=== PATIENT | female | born 1970 | race Caucasian/White ===

== ENCOUNTER 2017-06-14 09:51 | Day surgery (SDC) | payer OTHER ==
--- NOTE | 2017-06-14 07:52 | PCM.SN ---
- Free Text/Narrative Note: 07/13/16 [id number] Time out performed. Requested to placeright interscale block with ultrasound guidance and nerve stimulator for post op pain control per Dr. Almendarez and patient. 05/14/17 [id number] Preop diagnosis right shoulder pain. Procedure is left shoulder arthrosocpy with rotator cuff repair, decompression. Informed consent obtained. Monitors and O2 placed at 2 l per n/c. Versed 2 mg and Fentanyl 50 mcg given IV total. Patient awake and talking during procedure. Right neck and clavicle area prepped with chlorprep. Sterile gloves, hat and mask worn. US probe with sterile sleeve placed midclavicular with ID of brachial plexus and subclavian artery. Brachial plexus followed cephalad to level of cricoid. Lidocaine 1% local anesthetic injected prior to block placement. 22 g 2 inch stimplex needle advanced with US guidance to brachial plexus. Positive forearm response at ..4mA with nerve stimulator. Ceased with saline injection.Ropivacaine 0.5% with epi 1:200,000 injected in increments of 5 ml with negative aspiration before each injection to a total of 30 ml. Good spread of local anesthetic seen on US. Patient tolerated procedure well. Vitals stable with no complaints. Post vitals.-116/64 100% Sat 87 16 [email or web address]
[~2017-06-14 09:51] MED LIST: Bupivacaine 0.25% 30 ML SDV ONE; Dexamethasone 4 MG/ML SDV ONE; EPINEPHrine 1 MG/ML 30 ML MDV ONE; EPINEPHrine 1 MG/ML SDV ONE; HYDROmorphone 0.5 MG/0.5 ML Syringe IVPUSH PRN; Lactated Ringers 1,000 ML IV SCH; Lactated Ringers 1,000 ML ONE; Lidocaine 1% 4 ML ONE; Lidocaine 1%/Sod Bicarbonate in NS 8.4% 1 ML Syringe PRN; Meperidine PF 50 MG/ML Syringe IVPUSH PRN; Midazolam 1 MG/ML 2 ML SDV ONE; Ondansetron 4 MG/2 ML SDV IVPUSH PRN; Ondansetron 4 MG/2 ML SDV ONE; Propofol 200 MG/20 ML SDV ONE; Rocuronium 50 MG/5 ML Vial ONE; Ropivacaine 0.5% 5 MG/ML 30 ML SDV ONE; Sodium Chloride 0.9% 10 ML Syringe FLUSH PRN; ceFAZolin 1 GM Vial ONE; fentaNYL 100 MCG/2 ML SDV IVPUSH PRN; fentaNYL 250 MCG/5 ML SDV ONE
--- NOTE | 2017-06-14 10:17 | PCM.POSTAN ---
POST ANESTHESIA ASSESSMENT - MENTAL STATUS Mental Status: Alert, Oriented - VITAL SIGNS Pulse Rate: 79 SaO2: 96 Resp Rate: 17 Blood Pressure: 131/81 Temperature: 97.8 F - RESPIRATORY Respiratory Status: Respiratory Rate WNL, Airway Patent, O2 Saturation Stable, Supplemental Oxygen - CARDIOVASCULAR CV Status: Pulse Rate WNL, Blood Pressure Stable - GASTROINTESTINAL GI Status: No Symptoms - PAIN Pain Score: 0 - POST OP HYDRATION Hydration Status: Adequate & Stable
[2017-06-14 11:44] VITALS: BP 124/77
--- NOTE | 2017-06-14 12:12 | PCM48HPAN ---
Post Anesthesia Note - EVALUATION WITHIN 48HRS OF ANESTHETIC Vital Signs in Normal Range: Yes Patient Participated in Evaluation: Yes Respiratory Function Stable: Yes Airway Patent: Yes Cardiovascular Function Stable: Yes Hydration Status Stable: Yes Pain Control Satisfactory: Yes Nausea and Vomiting Control Satisfactory: Yes Mental Status Recovered: Yes (denies pain and nausea)
--- NOTE | 2017-06-20 09:18 | PCM.OPNOTE ---
- General Post-Op/Procedure Note Date of Surgery/Procedure: 06/14/17 Operative Procedure(s): right shoulder video arthroscopy with rotator cuff repair, subacromial decompression, and limited debridement of the subacromial space Pre Op Diagnosis: right shoulder rotator cuff tear with impingement Post-Op Diagnosis: Same Anesthesia Technique: General ET Tube, Regional Block Primary Surgeon: Bill Almendarez Anesthesia Provider: Danette Barrios Motion Picture Cameraman: Susie Chaves EBMayito in mLs: 5 Complications: None Condition: Good
--- NOTE | 2017-06-20 10:38 | OR ---
DATE OF OPERATION: 06/14/2017 SURGEON: Bill Almendarez MD OPERATION PERFORMED: Right shoulder video arthroscopy with rotator cuff repair, subacromial decompression, and limited debridement of the subacromial space. PREOPERATIVE DIAGNOSIS: Right shoulder rotator cuff tear with impingement. POSTOPERATIVE DIAGNOSIS: Right shoulder rotator cuff tear with impingement. ANESTHESIA: General endotracheal intubation with interscalene block. ANESTHESIA PROVIDER: Danette Barrios CRNA. CONTINUOUS DRIER OPERATOR: Susie Chaves PA-C. ESTIMATED BLOOD LOSS: Less than 5 mL. COMPLICATIONS: None. CONDITION: Stable. DESCRIPTION OF PROCEDURE: The patient was identified in the preop holding area. Proper site was marked and identified by the surgeon. The patient was taken back to the operating theater, where after adequate anesthesia, the patient was placed in a lazy left lateral decubitus position. A wedge was placed posteriorly. All bony prominences were well padded. The patient was secured to the table. At this time, the right upper extremity was sterilely prepped and draped in the usual sterile fashion. OR time-out was performed. The patient received 2 g of IV Ancef and 12 pounds of traction was applied to the right upper extremity. Standard posterior incision was made. The scope trocar was introduced into the glenohumeral joint. At this time, biceps tendon was found to be intact with the use of a spinal needle, anterior portal was then created. There was noted to be a large tear of the supraspinatus tendon that was full thickness. The infraspinatus and teres minor were noted to be intact. There was no chondromalacia noted of the glenoid or the humerus. There were no loose or foreign bodies noted. At this time, attention was turned to the subacromial space. A limited bursectomy and debridement was then done in the subacromial space. There was noted to be inflamed tissue. The tear was identified and with the use of a spinal needle, a lateral portal was created. At this time, the patient was found to have a type 2/3 acromion and using a 4-0 full-radius marshal, this was brought down to a smooth border that was in line with the posterior portion to make a type 1 acromion. At this time, a spinal needle was used and a punch was used for 4.75 mm Arthrex SwiveLock anchor for the medial row. Two limbs of FiberWire and 2 limbs of FiberWire placed from anterior to posterior. The 2 limbs of FiberWire were then tied medially for a medial row repair. All 4 limbs were then brought out laterally. A punch was again used out laterally and another 4.75 SwiveLock anchor was placed laterally for a double-row repair. Tension was applied to the sutures. At this time, was found to have an adequate watertight repair. The sutures were then cut. At this time, excess saline was drained from the shoulder. A 3-0 nylon simple suture was used for closure of the skin. The patient was placed in a sterile soft dressing and a pillow sling and was sent to PACU in stable condition. JUAN J /[id number]
== END 2017-06-14 12:14 | disposition home or self-care (01) ==
LOC: JD.SDS 09:51
PROVIDERS: ATTEND Orthopaedic Surgery
DX: M75.101 Unspecified rotator cuff tear or rupture of right shoulder, not specified as traumatic (principal); M75.41 Impingement syndrome of right shoulder; Z79.82 Long term (current) use of aspirin; Z79.899 Other long term (current) drug therapy; Z98.890 Other specified postprocedural states; Z98.51 Tubal ligation status
CPT/HCPCS: 29822; 29826; 29827; 87641; C1713; J0171; J0690; J1100; J2250; J2405; J2795; J3010; J3490; J7120; 01638; 64415; J2704

== ENCOUNTER 2017-11-02 09:04 | Day surgery (SDC) | payer OTHER ==
[~2017-11-02 09:04] MED LIST changes: -Bupivacaine 0.25% 30 ML SDV ONE; -Dexamethasone 4 MG/ML SDV ONE; -EPINEPHrine 1 MG/ML 30 ML MDV ONE; -EPINEPHrine 1 MG/ML SDV ONE; -HYDROmorphone 0.5 MG/0.5 ML Syringe IVPUSH PRN; -Lactated Ringers 1,000 ML ONE; -Lidocaine 1% 4 ML ONE; +Lidocaine 1% with EPINEPHrine 1:100,000 20 ML MDV ONE; +Lidocaine 1%/Sod Bicarbonate in NS 8.4% 1 ML Syringe IV PRN; -Lidocaine 1%/Sod Bicarbonate in NS 8.4% 1 ML Syringe PRN; -Meperidine PF 50 MG/ML Syringe IVPUSH PRN; -Midazolam 1 MG/ML 2 ML SDV ONE; -Ondansetron 4 MG/2 ML SDV IVPUSH PRN; -Ondansetron 4 MG/2 ML SDV ONE; -Propofol 200 MG/20 ML SDV ONE; -Rocuronium 50 MG/5 ML Vial ONE; -Ropivacaine 0.5% 5 MG/ML 30 ML SDV ONE; +Sodium Chloride 0.9% 50 ML SDV ONE; -ceFAZolin 1 GM Vial ONE; -fentaNYL 100 MCG/2 ML SDV IVPUSH PRN; -fentaNYL 250 MCG/5 ML SDV ONE
--- NOTE | 2017-11-02 09:28 | PCM.PREANE ---
Preanesthetic Assessment - Procedure Proposed Procedure: D&C, cervical conization - Anesthesia/Transfusion/Family Hx Anesthesia History: Prior Anesthesia Reaction Type of Anesthesia Reaction: Excessive Somnolence Family History of Anesthesia Reaction: No Transfusion History: No Prior Transfusion(s) Intubation History: Unknown Additional History: factor 5 leiden deficiency - Review of Systems General: No Symptoms Pulmonary: No Symptoms Cardiovascular: Other (HLD) Gastrointestinal: No Symptoms Neurological: No Symptoms Other: Reports: Thyroid Problems (hypothyroidism ), Depression - Physical Assessment NPO Status Date: 11/01/17 NPO Status Time: 21:00 Pulse: 76 O2 Sat by Pulse Oximetry: 98 Respiratory Rate: 16 Blood Pressure: 130/84 Temperature: 36.4 C Height: 1.65 m Weight: 91.626 kg ASA Class: 2 Mental Status: Alert & Oriented x3 Airway Class: Mallampati = 2 Dentition: Reports: Normal Dentition Thyro-Mental Finger Breadths: 3 Mouth Opening Finger Breadths: 3 ROM/Head Extension: Full Lungs: Clear to Auscultation, Normal Respiratory Effort Cardiovascular: Regular Rate, Regular Rhythm - Allergies Allergies/Adverse Reactions: Allergies Allergy/AdvReac Type Severity Reaction Status Date / Time No Known Allergies Allergy Verified 11/01/17 13:30 - Blood Blood Available: No Product(s) Available: None - Anesthesia Plan Pre-Op Medication Ordered: None - Acknowledgements Anesthesia Type Planned: MAC Pt an Appropriate Candidate for the Planned Anesthesia: Yes Alternatives and Risks of Anesthesia Discussed w Pt/Guardian: Yes Pt/Guardian Understands and Agrees with Anesthesia Plan: Yes PreAnesthesia Questionnaire HEENT History: Reports: Allergic Rhinitis, Impaired Vision, Sinusitis, Other ( See Below) Other HEENT History: Pharyngitis, wears glasses, tongue lesion Cardiovascular History: Reports: High Cholesterol Respiratory History: Reports: None Gastrointestinal History: Reports: None Genitourinary History: Reports: None, STD, Other (See Below) Other Genitourinary History: ASCUS< DILMA I, midline cystocele 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, Other (See Below) Other OB/BYN History: ASCUS, DILMA I, coposcopy, HPV Other Musculoskeletal History: Right shoulder pain Neurological History: Reports: None Psychiatric History: Reports: Depression Endocrine/Metabolic History: Reports: Hypothyroidism, Obesity/BMI 30+, Vitamin D Deficiency, Other (See Below) Other Endocrine/Metabolic History: Thyroid nodule, diffuse non-toxic goiter Hematologic History: Reports: Other (See Below) Other Hematologic History: Factor V, Low magnesium level Immunologic History: Reports: None Oncologic (Cancer) History: Reports: None Dermatologic History: Reports: Psoriasis, Other (See Below) Other Dermatologic History: atopic dermatitis, onchomycosis, skin lesion - Infectious Disease History Infectious Disease History: Reports: None - Past Surgical History Head Surgeries/Procedures: Reports: None HEENT Surgical History: Reports: Tonsillectomy Cardiovascular Surgical History: Reports: None Respiratory Surgical History: Reports: None GI Surgical History: Reports: None Female Surgical History: Reports: Cystoscopy, Tubal Ligation Male Surgical History: Reports: None Endocrine Surgical History: Reports: None Neurological Surgical History: Reports: None Musculoskeletal Surgical History: Reports: None, Other (See Below) Other Musculoskeletal Surgeries/Procedures:: right rotator cuff repair 05/2017 Oncologic Surgical History: Reports: None Dermatological Surgical History: Reports: None - SUBSTANCE USE Smoking Status *Q: Never Smoker Second Hand Smoke Exposure: No Recreational Drug Use History: No - HOME MEDS Home Medications: Home Meds Ascorbate Calcium [Vitamin C] 1,000 mg PO DAILY 06/13/17 [History] Aspirin 81 mg PO DAILY 06/13/17 [History] Cholecalciferol (Vitamin D3) [Vitamin D3] 10,000 unit PO DAILY 06/13/17 [History ] Clobetasol [Clobetasol 0.05%] 1 applic TOP BID 06/13/17 [History] Fish Oil/DHA/EPA [Fish Oil 1,200 MG] 2 cap PO DAILY 06/13/17 [History] Iron 18 mg PO DAILY 06/13/17 [History] Magnesium Chloride 150 mg PO DAILY 06/13/17 [History] Milk Thistle 1,000 mg PO DAILY 06/13/17 [History] Thyroid,Pork [Nature-Throid] 32.5 mg PO BID 06/13/17 [History] Adrenal Stress Calm 2 tab PO DAILY 11/01/17 [History] Ciclopirox/Ure/Camph/Menth/Euc [Ciclopirox 8% Treatment Kit] 1 applic TOP BEDTIME 11/01/17 [History] Turmeric Root Extract [Turmeric] 1,000 mg PO DAILY 11/01/17 [History] - CURRENT (IN HOUSE) MEDS Current Meds: Current Medications Lactated Ringer's (Ringers, Lactated) 1,000 mls @ 125 mls/hr IV ASDIRECTED SAMIRA Stop: 11/02/17 23:00 Lidocaine/Sodium Bicarbonate (Buffered Lidocaine 1% In Ns 8.4%) 0.25 ml IV ONETIME PRN PRN Reason: Prior to IV Start Stop: 11/02/17 18:00 Sodium Chloride (Saline Flush) 10 ml FLUSH ASDIRECTED PRN PRN Reason: Keep Vein Open Stop: 11/02/17 18:00 Discontinued Medications Lidocaine/Epinephrine (Xylocaine 1% With Epinephrine 1:100,000) Confirm Administered Dose 20 ml .ROUTE .STK-MED ONE Stop: 11/02/17 09:01 Sodium Chloride (Normal Saline) Confirm Administered Dose 50 ml .ROUTE .STK-MED ONE Stop: 11/02/17 09:01
[2017-11-02] MEDS ORDERED: Propofol 200 MG/20 ML SDV ONE ×2 (09:46→10:35)
[2017-11-02] MEDS ORDERED: fentaNYL 100 MCG/2 ML SDV ONE (09:47)
[2017-11-02] MEDS ORDERED: Midazolam 1 MG/ML 2 ML SDV ONE (09:47)
[2017-11-02] MEDS ORDERED: Ketamine 500 mg/10 ML MDV ONE (09:47)
[2017-11-02] MEDS ORDERED: Lidocaine 1% 4 ML ONE (09:51)
[2017-11-02] MEDS ORDERED: Ketorolac 30 MG/ML SDV ONE (09:52)
[2017-11-02] MEDS ORDERED: Lactated Ringers 1,000 ML ONE (10:33)
[2017-11-02] MEDS ORDERED: ceFAZolin 1 GM Vial ONE (10:37)
--- NOTE | 2017-11-02 11:00 | PCM48HPAN ---
Post Anesthesia Note - EVALUATION WITHIN 48HRS OF ANESTHETIC Vital Signs in Normal Range: Yes Patient Participated in Evaluation: Yes Respiratory Function Stable: Yes Airway Patent: Yes Cardiovascular Function Stable: Yes Hydration Status Stable: Yes Pain Control Satisfactory: Yes Nausea and Vomiting Control Satisfactory: Yes Mental Status Recovered: Yes
--- NOTE | 2017-11-02 11:01 | PCM.OPNOTE ---
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 Prepared and draped in a sterile fashion. Timeout performed confirming name date of and procedure as D&C and conization. SCDs in place and functioning prior surgery. Ancef 2 g given intravenously prior surgery. Lugol staining of the cervix revealed no significant decreased staining areas. Injecting 15 mL of 0.25% lidocaine with epinephrine and multiple confluent areas well away from the area of the planned cone. Sutures of 0 Monocryl were placed at 3:00 and 9:00 away from the area of the cone to help decrease bleeding. Conization performed without difficulty after sounding the uterus to 9.5 cm. The cone specimen was removed intact and sutured at 12:00. Endocervical curettage performed this tissue sent separately. Endometrial curettage performed and that tissue sent separately as well. Utilizing electrocautery and Monsel solution bleeding from the area of the cone base was stopped without difficulty. Sponge needle pack asthma sharp count correct 2 and patient transported postanesthesia care unit in satisfactory condition. No blood transfusions required. All tissue sent to pathology for tissue evaluation.
[2017-11-02 11:03] VITALS: BP 134/94
== END 2017-11-02 11:45 | disposition home or self-care (01) ==
LOC: JD.SDS 09:04
PROVIDERS: ATTEND Obstetrics & Gynecology
DX: N87.0 Mild cervical dysplasia (principal); R87.810 Cervical high risk human papillomavirus (HPV) DNA test positive; E03.9 Hypothyroidism, unspecified; E78.00 Pure hypercholesterolemia, unspecified; D68.51 Activated protein C resistance; B97.7 Papillomavirus as the cause of diseases classified elsewhere; F32.9 Major depressive disorder, single episode, unspecified; E66.9 Obesity, unspecified; E55.9 Vitamin D deficiency, unspecified; E04.0 Nontoxic diffuse goiter; J30.9 Allergic rhinitis, unspecified; L20.9 Atopic dermatitis, unspecified; L24.9 Irritant contact dermatitis, unspecified cause; K14.8 Other diseases of tongue; B35.1 Tinea unguium; L98.9 Disorder of the skin and subcutaneous tissue, unspecified; Z98.51 Tubal ligation status; Z79.82 Long term (current) use of aspirin; Z79.899 Other long term (current) drug therapy; Z90.89 Acquired absence of other organs; Z68.30 Body mass index [BMI] 30.0-30.9, adult
CPT/HCPCS: 36415; 57520; 84439; 84443; 84702; 85025; 86850; 86900; 86901; J0690; J1885; J2250; J3010; J7120; 00940; J2704

== ENCOUNTER 2020-01-09 15:01 | Emergency (ER) | payer OTHER ==
[2020-01-09 15:17] VITALS: PULSE 88
--- NOTE | 2020-01-09 16:10 | CR ---
Chest: 2 views of the chest were obtained. Comparison: No previous chest imaging. Heart size and mediastinum are normal. Lungs are clear with no acute parenchymal change. Bony structures show slight degenerative change within the spine. Impression: 1. Nothing acute is seen on 2 view chest x-ray. Diagnostic code #2 Study was dictated in MDT
--- NOTE | 2020-01-09 16:24 | EDM.PDOC ---
ED HPI GENERAL MEDICAL PROBLEM - General Chief Complaint: Respiratory Problem Stated Complaint: COUGH Time Seen by Provider: 01/09/20 15:24 Source of Information: Reports: Patient History Limitations: Reports: No Limitations - History of Present Illness INITIAL COMMENTS - FREE TEXT/NARRATIVE: The patient presents with a cough for about 2 weeks. She has some tightness at times. She has no fever and she has no shortness of breath. She does have issues with palpitations in the past. She was put on some thyroid meds for hypothyroidism. She has no abdominal pain, nausea or vomiting. She did not get the flu shot. Onset: Gradual Duration: Day(s): Location: Reports: Chest Quality: Reports: Other (tightness at times) Severity: Mild Improves with: Reports: None Worsens with: Reports: None Associated Symptoms: Reports: Chest Pain, Cough. Denies: Fever/Chills, Headaches, Nausea/Vomiting, Shortness of Breath - Related Data Allergies Allergy/AdvReac Type Severity Reaction Status Date / Time latex Allergy Other Verified 11/02/17 11:17 Home Meds: Home Meds Ascorbate Calcium [Vitamin C] 1,000 mg PO DAILY 06/13/17 [History] Aspirin 81 mg PO DAILY 06/13/17 [History] Cholecalciferol (Vitamin D3) [Vitamin D3] 10,000 unit PO DAILY 06/13/17 [History ] Clobetasol [Clobetasol 0.05%] 1 applic TOP BID 06/13/17 [History] Fish Oil/DHA/EPA [Fish Oil 1,200 MG] 2 cap PO DAILY 06/13/17 [History] Iron 18 mg PO DAILY 06/13/17 [History] Magnesium Chloride 150 mg PO DAILY 06/13/17 [History] Milk Thistle 1,000 mg PO DAILY 06/13/17 [History] Thyroid,Pork [Nature-Throid] 32.5 mg PO BID 06/13/17 [History] Adrenal Stress Calm 2 tab PO DAILY 11/01/17 [History] Turmeric Root Extract [Turmeric] 1,000 mg PO DAILY 11/01/17 [History] Ibuprofen [Motrin] 600 mg PO Q6H #50 tablet 11/02/17 [Rx] Adrenal Px Balance 1 tab PO DAILY 01/09/20 [History] Thyroid Px 1 tab PO DAILY 01/09/20 [History] Past Medical History HEENT History: Reports: Allergic Rhinitis, Impaired Vision, Sinusitis, Other ( See Below) Other HEENT History: Pharyngitis, wears glasses, tongue lesion Cardiovascular History: Reports: High Cholesterol Respiratory History: Reports: None Gastrointestinal History: Reports: None Genitourinary History: Reports: None, STD, Other (See Below) Other Genitourinary History: ASCUS< DILMA I, midline cystocele 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, 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: ASCUS, IDLMA I, coposcopy, HPV Other Musculoskeletal History: Right shoulder pain Neurological History: Reports: None Psychiatric History: Reports: Depression Endocrine/Metabolic History: Reports: Hypothyroidism, Obesity/BMI 30+, Vitamin D Deficiency, Other (See Below) Other Endocrine/Metabolic History: Thyroid nodule, diffuse non-toxic goiter Hematologic History: Reports: Other (See Below) Other Hematologic History: Factor V, Low magnesium level Immunologic History: Reports: None Oncologic (Cancer) History: Reports: None Dermatologic History: Reports: Psoriasis, Other (See Below) Other Dermatologic History: atopic dermatitis, onchomycosis, skin lesion - Infectious Disease History Infectious Disease History: Reports: None - Past Surgical History Head Surgeries/Procedures: Reports: None HEENT Surgical History: Reports: Tonsillectomy Cardiovascular Surgical History: Reports: None Respiratory Surgical History: Reports: None GI Surgical History: Reports: None Female Surgical History: Reports: Cystoscopy, Tubal Ligation Endocrine Surgical History: Reports: None Neurological Surgical History: Reports: None Musculoskeletal Surgical History: Reports: None, Other (See Below) Other Musculoskeletal Surgeries/Procedures:: right rotator cuff repair 05/2017 Oncologic Surgical History: Reports: None Dermatological Surgical History: Reports: None Social & Family History - Tobacco Use Smoking Status *Q: Never Smoker - Caffeine Use Caffeine Use: Reports: Coffee, Energy Drinks, Soda, Tea - Recreational Drug Use Recreational Drug Use: No ED ROS GENERAL - Review of Systems Review Of Systems: See Below Constitutional: Reports: No Symptoms HEENT: Reports: No Symptoms Respiratory: Reports: Cough. Denies: Shortness of Breath Cardiovascular: Reports: Chest Pain Endocrine: Reports: No Symptoms GI/Abdominal: Reports: No Symptoms ED EXAM, GENERAL - Physical Exam Exam: See Below Exam Limited By: No Limitations General Appearance: Alert, No Apparent Distress Ears: Normal External Exam Nose: Normal Inspection Head: Atraumatic, Normocephalic Neck: Normal Inspection Respiratory/Chest: No Respiratory Distress, Lungs Clear, Normal Breath Sounds Cardiovascular: Regular Rate, Rhythm, No Edema, No Murmur GI/Abdominal: Soft, Non-Tender, No Organomegaly, No Mass Back Exam: Normal Inspection Extremities: Normal Inspection Course - Vital Signs Last Recorded V/S: Last Vital Signs Temp 97.5 F 01/09/20 15:14 Pulse 88 01/09/20 15:14 Resp 20 01/09/20 15:14 BP 131/78 01/09/20 15:14 Pulse Ox 100 01/09/20 15:14 - Orders/Labs/Meds Orders: Active Orders 24 hr Category Date Time Status Isolation [COMM] Routine Oth 01/09/20 15:45 Ordered Labs: Laboratory Tests 01/09/20 Range/Units 16:12 TSH 3rd Generation 0.028 L (0.358-3.74) uIU/mL - Re-Assessments/Exams Free Text/Narrative Re-Assessment/Exam: 01/09/20 16:24 I ordered a CXR, influenza and TSH. Her CXR looks good. 01/09/20 17:27 Her TSH is low at 0.028. She is hyperthyroid. I will have her stop her thyroid meds and I will have her rechecked within a week. Departure - Departure Time of Disposition: 17:30 Disposition: Home, Self-Care 01 Condition: Good Clinical Impression: Hyperthyroidism, Cough - Discharge Information *PRESCRIPTION DRUG MONITORING PROGRAM REVIEWED*: Not Applicable *COPY OF PRESCRIPTION DRUG MONITORING REPORT IN PATIENT PATRICK: Not Applicable Referrals: Nu Fry AUDIT [facility] [Primary Care Provider] - 1 Week Forms: ED Department Discharge Additional Instructions: Stop your thyroid meds. You are hyperthyroid now. Follow up with your doctor next week and have the level rechecked and then they can start you on a lower dose. Please return if you are worse. Try some over the counter cough medicine. Sepsis Event Note - Evaluation Sepsis Screening Result: No Definite Risk - Focused Exam Vital Signs: Vital Signs Temp Pulse Resp BP Pulse Ox 01/09/20 15:14 97.5 F 88 20 131/78 100 Date Exam was Performed: 01/09/20 Time Exam was Performed: 17:27 - My Orders Last 24 Hours: My Active Orders 01/09/20 15:45 Isolation [COMM] Routine - Assessment/Plan Last 24 Hours: My Active Orders 01/09/20 15:45 Isolation [COMM] Routine
[2020-01-09 17:50] VITALS: BP 108/71
== END 2020-01-09 17:38 | disposition home or self-care (01) ==
LOC: JD.ED 15:01 → SUPCPDRO 15:01 → JD.ED 17:38
DX: R05 Cough (principal); E05.90 Thyrotoxicosis, unspecified without thyrotoxic crisis or storm; E66.9 Obesity, unspecified; Z68.30 Body mass index [BMI] 30.0-30.9, adult; Z91.040 Latex allergy status; Z79.82 Long term (current) use of aspirin; Z79.899 Other long term (current) drug therapy
CPT/HCPCS: 36415; 71046; 71046-26; 84443; 87804; 99282; 99285-25

== ENCOUNTER 2020-04-16 08:55 | Day surgery (SDC) | payer OTHER ==
[~2020-04-16 08:55] MED LIST changes: -Lactated Ringers 1,000 ML IV SCH; -Lidocaine 1% with EPINEPHrine 1:100,000 20 ML MDV ONE; +Lidocaine 1%/Sod Bicarbonate in NS 8.4% 1 ML Syringe IDERM PRN; -Lidocaine 1%/Sod Bicarbonate in NS 8.4% 1 ML Syringe IV PRN; -Sodium Chloride 0.9% 50 ML SDV ONE
[2020-04-16] MEDS: Lactated Ringers 1,000 ML IV SCH ×2 (09:20→13:46)
[2020-04-16] MEDS ORDERED: Propofol 200 MG/20 ML SDV ONE (09:26)
[2020-04-16] MEDS ORDERED: fentaNYL 250 MCG/5 ML SDV ONE (09:27)
[2020-04-16] MEDS ORDERED: Midazolam 1 MG/ML 2 ML SDV ONE (09:27)
[2020-04-16] MEDS ORDERED: ceFAZolin 1 GM Vial ONE (09:37)
[2020-04-16] MEDS ORDERED: Lidocaine 1% 4 ML ONE (09:37)
--- NOTE | 2020-04-16 09:42 | PCM.PREANE ---
Preanesthetic Assessment - Procedure Proposed Procedure: lap assisted vag hyst - Anesthesia/Transfusion/Family Hx Anesthesia History: Prior Anesthesia Reaction Type of Anesthesia Reaction: Other (see below) (hard to wake up) Family History of Anesthesia Reaction: No Transfusion History: No Prior Transfusion(s) Intubation History: Unknown - Review of Systems General: No Symptoms Pulmonary: No Symptoms Cardiovascular: No Symptoms Gastrointestinal: No Symptoms Neurological: No Symptoms Other: Reports: Thyroid Problems - Physical Assessment NPO Status Date: 04/15/20 NPO Status Time: 20:30 Vital Signs: Last Vital Signs Temp 98.4 F 04/16/20 09:00 Pulse 74 04/16/20 09:00 Resp 16 04/16/20 09:00 BP 117/86 04/16/20 09:00 Pulse Ox 97 04/16/20 09:00 Height: 5 ft 5 in Weight: 88.904 kg ASA Class: 2 Mental Status: Alert & Oriented x3 Airway Class: Mallampati = 1 Dentition: Reports: Normal Dentition Thyro-Mental Finger Breadths: 3 Mouth Opening Finger Breadths: 3 ROM/Head Extension: Full Lungs: Clear to Auscultation, Normal Respiratory Effort Cardiovascular: Regular Rate, Regular Rhythm - Lab Values: Laboratory Last Values WBC 4.63 K/mm3 (3.98-10.04) 04/16/20 09:20 RBC 4.79 M/mm3 (3.98-5.22) 04/16/20 09:20 Hgb 14.6 gm/dl (11.2-15.7) 04/16/20 09:20 Hct 42.6 % (34.1-44.9) 04/16/20 09:20 MCV 88.9 fl (79.4-94.8) 04/16/20 09:20 MCH 30.5 pg (25.6-32.2) 04/16/20 09:20 MCHC 34.3 g/dl (32.2-35.5) 04/16/20 09:20 RDW Std Deviation 40.7 fL (36.4-46.3) 04/16/20 09:20 Plt Count 199 K/mm3 (182-369) 04/16/20 09:20 MPV 9.6 fl (9.4-12.3) 04/16/20 09:20 Neut % (Auto) 63.1 % (34.0-71.1) 04/16/20 09:20 Lymph % (Auto) 28.7 % (19.3-51.7) 04/16/20 09:20 Spencer % (Auto) 6.0 % (4.7-12.5) 04/16/20 09:20 Eos % (Auto) 1.3 (0.7-5.8) 04/16/20 09:20 Baso % (Auto) 0.9 % (0.1-1.2) 04/16/20 09:20 Neut # (Auto) 2.92 K/mm3 (1.56-6.13) 04/16/20 09:20 Lymph # (Auto) 1.33 K/mm3 (1.18-3.74) 04/16/20 09:20 Spencer # (Auto) 0.28 K/mm3 (0.24-0.36) 04/16/20 09:20 Eos # (Auto) 0.06 K/mm3 (0.04-0.36) 04/16/20 09:20 Baso # (Auto) 0.04 K/mm3 (0.01-0.08) 04/16/20 09:20 - Allergies Allergies/Adverse Reactions: Allergies Allergy/AdvReac Type Severity Reaction Status Date / Time No Known Allergies Allergy Verified 04/15/20 15:21 - Blood Blood Available: No - Acknowledgements Anesthesia Type Planned: General Anesthesia Pt an Appropriate Candidate for the Planned Anesthesia: Yes Alternatives and Risks of Anesthesia Discussed w Pt/Guardian: Yes Pt/Guardian Understands and Agrees with Anesthesia Plan: Yes PreAnesthesia Questionnaire HEENT History: Reports: Allergic Rhinitis, Impaired Vision, Sinusitis, Other (See Below) Other HEENT History: Pharyngitis, wears glasses, tongue lesion Cardiovascular History: Reports: High Cholesterol Respiratory History: Reports: None Gastrointestinal History: Reports: GERD (occasionally) Genitourinary History: Reports: STD, Other (See Below) Other Genitourinary History: ASCUS< DILMA I, midline cystocele 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: Other (See Below) Other OB/BYN History: ASCUS, DILMA I, coposcopy, HPV, cystocele, MAXIMILIAN, mittelscmerz, thicken endometrium Other Musculoskeletal History: Right shoulder pain Neurological History: Reports: None Psychiatric History: Reports: Depression Endocrine/Metabolic History: Reports: Hypothyroidism, Obesity/BMI 30+, Vitamin D Deficiency, Other (See Below) Other Endocrine/Metabolic History: Thyroid nodule, diffuse non-toxic goiter Hematologic History: Reports: Iron Deficiency, Other (See Below) Other Hematologic History: Factor V, Low magnesium level Immunologic History: Reports: None Oncologic (Cancer) History: Reports: None Dermatologic History: Reports: Psoriasis, Other (See Below) Other Dermatologic History: atopic dermatitis, onchomycosis, skin lesion - Infectious Disease History Infectious Disease History: Reports: None - Past Surgical History Head Surgeries/Procedures: Reports: None HEENT Surgical History: Reports: Tonsillectomy Cardiovascular Surgical History: Reports: None Respiratory Surgical History: Reports: None GI Surgical History: Reports: None Female Surgical History: Reports: Cystoscopy, Tubal Ligation Male Surgical History: Reports: None Endocrine Surgical History: Reports: None Neurological Surgical History: Reports: None Musculoskeletal Surgical History: Reports: None, Other (See Below) Other Musculoskeletal Surgeries/Procedures:: right rotator cuff repair 05/2017 Oncologic Surgical History: Reports: None Dermatological Surgical History: Reports: None - SUBSTANCE USE Smoking Status *Q: Never Smoker Tobacco Use Within Last Twelve Months: No Second Hand Smoke Exposure: No Days Per Week of Alcohol Use: 1 Number of Drinks Per Day: 1 Total Drinks Per Week: 1 Recreational Drug Use History: No - HOME MEDS Home Medications: Home Meds Ascorbate Calcium [Vitamin C] 1,000 mg PO DAILY 06/13/17 [History] Aspirin 81 mg PO DAILY 06/13/17 [History] Cholecalciferol (Vitamin D3) [Vitamin D3] 5,000 unit PO DAILY 06/13/17 [History] Clobetasol [Clobetasol 0.05%] 1 applic TOP BID 06/13/17 [History] Fish Oil/DHA/EPA [Fish Oil 1,200 MG] 2 cap PO DAILY 06/13/17 [History] Iron 18 mg PO DAILY 06/13/17 [History] Milk Thistle 1,000 mg PO DAILY 06/13/17 [History] Thyroid,Pork [Nature-Throid] 32.5 mg PO BID 06/13/17 [History] Turmeric Root Extract [Turmeric] 1,000 mg PO DAILY 11/01/17 [History] Calcium Carbonate [Calcium] 500 mg PO DAILY 04/15/20 [History] Iodine/Sodium Iodide [Iodine 2% Mild Tincture] 3 drop SL DAILY 04/15/20 [History] L.acidoph,Paracasei, B.lactis [Probiotic] 1 cap PO DAILY 04/15/20 [History] Tobramycin/Dexamethasone [Tobradex Eye Drops] 1 drop EYEBOTH ASDIRECTED PRN 04/15/20 [History] Ubidecarenone [Coq-10] 100 mg PO DAILY 04/15/20 [History] - CURRENT (IN HOUSE) MEDS Current Meds: Current Medications Lactated Ringer's (Ringers, Lactated) 1,000 mls @ 125 mls/hr IV ASDIRECTED SAMIRA Stop: 04/16/20 23:00 Last Admin: 04/16/20 09:20 Dose: 125 mls/hr Documented by: Lidocaine/Sodium Bicarbonate (Buffered Lidocaine 1% In Ns 8.4%) 0.25 ml IDERM ONETIME PRN PRN Reason: Prior to IV Start Stop: 04/16/20 18:00 Sodium Chloride (Saline Flush) 10 ml FLUSH ASDIRECTED PRN PRN Reason: Keep Vein Open Stop: 04/16/20 23:00 Discontinued Medications Fentanyl (Sublimaze) Confirm Administered Dose 250 mcg .ROUTE .STK-MED ONE Stop: 04/16/20 09:28 Glycopyrrolate () Confirm Administered Dose 1 mg .ROUTE .STK-MED ONE Stop: 04/16/20 09:30 Midazolam HCl (Versed 1 Mg/Ml) Confirm Administered Dose 4 mg .ROUTE .STK-MED ONE Stop: 04/16/20 09:28 Propofol (Diprivan 20 Ml) Confirm Administered Dose 200 mg .ROUTE .STK-MED ONE Stop: 04/16/20 09:27
[2020-04-16] MEDS ORDERED: Ketorolac 30 MG/ML SDV ONE ×2 (10:03→13:09)
[2020-04-16] MEDS ORDERED: Bupivacaine 0.5% 30 ML SDV ONE (10:18)
[2020-04-16] MEDS ORDERED: Succinylcholine/Sod PF 100 MG/5 ML SYRINGE IV ONE ×2 (10:19→11:11)
[2020-04-16] MEDS ORDERED: Sodium Chloride 0.9% 50 ML SDV ONE (10:20)
[2020-04-16] MEDS ORDERED: Scopolamine 1.5 MG Transdermal Patch TOP SCH (10:34)
[2020-04-16] MEDS ORDERED: Lidocaine 1% with EPINEPHrine 1:100,000 20 ML MDV ONE (10:38)
[2020-04-16] MEDS ORDERED: Rocuronium 50 MG/5 ML Vial ONE (11:16)
[2020-04-16] MEDS ORDERED: HYDROmorphone 1 MG/ML Syringe ONE (11:35)
[2020-04-16] MEDS ORDERED: Lactated Ringers 1,000 ML ONE (11:38)
[2020-04-16] MEDS ORDERED: Ondansetron 4 MG/2 ML SDV ONE (12:08)
[2020-04-16] MEDS ORDERED: fentaNYL 100 MCG/2 ML SDV IVPUSH PRN (12:20)
[2020-04-16] MEDS ORDERED: HYDROmorphone 0.5 MG/0.5 ML Syringe IVPUSH PRN (12:20)
--- NOTE | 2020-04-16 13:31 | PCM.POSTAN ---
POST ANESTHESIA ASSESSMENT - MENTAL STATUS Mental Status: Somnolent - VITAL SIGNS Vital Signs: Last Vital Signs Temp 98.0 F 04/16/20 13:21 Pulse 66 04/16/20 13:21 Resp 16 04/16/20 13:21 BP 121/66 04/16/20 13:21 Pulse Ox 96 04/16/20 13:21 - RESPIRATORY Respiratory Status: Respiratory Rate WNL, Airway Patent, O2 Saturation Stable, Supplemental Oxygen - CARDIOVASCULAR CV Status: Pulse Rate WNL, Blood Pressure Stable - GASTROINTESTINAL GI Status: No Symptoms - PAIN Pain Score: 0 - POST OP HYDRATION Hydration Status: Adequate & Stable
--- NOTE | 2020-04-16 13:37 | PCM.OPNOTE ---
- General Post-Op/Procedure Note Date of Surgery/Procedure: 04/16/20 Operative Procedure(s): Laparoscopic-assisted vaginal hysterectomy bilateral salpingectomy, anterior colporrhaphy, mid urethral sling Pre Op Diagnosis: DILMA-1, cystocele midline, dysmenorrhea, pelvic pain, stress urinary incontinence Post-Op Diagnosis: Same Anesthesia Technique: General ET Tube Primary Surgeon: Manolo Stallworth Secondary Surgeon: rPatik Sanders Anesthesia Provider: Modesto Cabello Reason Exchange Operator Was Necessary: Assist in surgery, decrease comorbidity and mortality Role of Exchange Operator: Assist in surgery, decrease comorbidity and mortality Fluid Replacement, Intraop: 2,000 Output, Urine Amount: 260 EBL in mLs: 100 Drain/Tube Comments:: None Complications: None Condition: Good Free Text/Narrative:: Intake & Output 04/15/20 04/16/20 04/16/20 22:59 06:59 14:59 Output Total 260 Balance -260 Patient was transported to operating room in medical office building and placed under general anesthesia with endotracheal intubation in the low dorsolithotomy position. Prepared and draped in a sterile fashion. Timeout was performed confirming name date of and procedure. SCDs in place and functioning prior to surgery. Ancef 2 g given intravenously prior to surgery. Patient has history of factor V Leiden deficiency and will be given Lovenox 40 mg subcu 1 hour postop and daily for the next 14 days. Examination under anesthesia revealed anterior uterus no adnexal masses. The area of the planned incision for the laparoscope was injected with 1.5 mL of Marcaine 0.5% without epinephrine a vertical incision was made and the 5 mm self-retaining trocar was introduced after obtaining pneumoperitoneum with the varies needle. Right and left lower flank incisions made with transillumination to avoid vessel injury. The uterus was grasped elevated and posterior cul-de-sac inspected anterior cul-de-sac inspected and no problems anticipated the appendix was not visualized. The gallbladder appeared normal. The attention was turned to the uterus patient had had previous tubal ligation. Utilizing Enseal crossclamping and removing the fallopian tube distal portions bilaterally without difficulty. Both ovaries appeared normal and patient and I discussed leaving ovaries if possible since she is not a good candidate for hormone replacement therapy because of her factor V Leiden deficiency. Patient understands she may have to undergo additional surgery in the future if any problems develop. Utilizing the Enseal and proceeding caudad crossclamping at the area of the round ligament and utero-ovarian ligament activating the Enseal and incising proceeding caudad crossclamping, activating and incising until the area of the lower uterine segment was approximated and a low transverse application of the Enseal was able to produce bladder flap without difficulty. One additional bite was taken to the uterine vasculature on the right side. Small amount of bleeding arterial was noted in the artery was grasped and electrocoagulated with the Enseal bleeding was stopped. Same procedure was carried out on the left side. Upon completion of the left-sided surgery as well the procedure was then completed vaginally. The cervix was grasped injecting approximately 21 mL of lidocaine 0.25 with epinephrine and multiple confluent areas and circumscribing the cervix the posterior colpotomy was entered without difficulty long weighted speculum placed in the anterior colpotomy was performed without difficulty. Utilizing Enseal crossclamping the uterosacral and cardinal bundles the Enseal was activated and incised additional 2 bites with the Enseal on the left side completed surgery on that side and same was carried out on the right side. Hemostasis was normal. To posterior cuff was closed with running locking suture of 0 Monocryl. A anterior colporrhaphy was performed grasping the inferior portion of the vaginal mucosa and injecting 0.25% lidocaine with epinephrine approximately 2 mL to 3 mL in the subcutaneous tissue undermining and then pushing the redundant tissue caudad the plication sutures were placed at the urethrovesical angle and 1 additional suture required posteriorly the redundant vaginal mucosa was removed sutures were placed with 0 Monocryl. Closing the vaginal mucosa incision with 3-0 Monocryl. The anterior posterior vaginal cuff were then approximated with 0 Monocryl hemostasis was complete. The mid urethral sling was then performed injecting 1 to 2 mL of lidocaine with epinephrine as noted above in the area of the planned incision vertical incision was made along the urethra beginning at the cystourethral angle. The redundant tissue was pushed cephalad. The areas of planned placement of the mesh needles had been marked and a small incision made the mesh needle was then brought through on the left side with evaluation of the mucosa of the vagina to make sure no "buttonhole" same procedure was carried out on the right side and the mesh was cut at the skin line to allow retraction. Utilizing large Hegar dilator #15 the mesh was placed in a smooth and wrinkled condition with looseness flat against the Hegar dilator. That incision was closed with a running suture of 3-0 Monocryl, 240 mL of saline instilled into the bladder to allow more prompt need to void. The attention was then turned back to the abdomen and reobtaining pneumoperitoneum inspection of the operative site showed no bleeding patient's pneumoperitoneum was reduced and the 3 incisions on the abdomen were closed with 3-0 Monocryl Dermabond applied to all the incisions. Patient was transported to postanesthesia care unit in satisfactory condition no blood transfusions required an unanticipated nursing condition should change. Patient will be given Lovenox 40 mg subcutaneous injection at 1400 hrs. and patient will be kept on extended recovery overnight as she lives in [facility]. I talked with her all questions were answered to his voiced satisfaction. Images 001 subcutaneous tissue and omentum and liver are seen at the center of the picture 002 close review of the gallbladder and liver 003 distal portion of fallopian tube remaining after tubal ligation in the right ovary on the right side of the picture left side the picture is the uterus 004 left ovary and remaining distal portion of fallopian tube after tubal ligation which have been performed elsewhere. Uterus is noted at the right side of the picture. 005 shows the left lower quadrant flank incision where the trocar came through the peritoneum with no bleeding Image 006 shows the right lower quadrant incision where the trocar came through the peritoneum after removal and no bleeding.
[2020-04-16] MEDS ORDERED: Ondansetron 4 MG/2 ML SDV IVPUSH PRN (13:47)
[2020-04-16] MEDS ORDERED: Enoxaparin 40 MG/0.4 ML Syringe SUBCUT ONE (14:16)
--- NOTE | 2020-04-16 14:38 | PCM48HPAN ---
Post Anesthesia Note - EVALUATION WITHIN 48HRS OF ANESTHETIC Vital Signs in Normal Range: Yes Patient Participated in Evaluation: Yes Respiratory Function Stable: Yes Airway Patent: Yes Cardiovascular Function Stable: Yes Hydration Status Stable: Yes Pain Control Satisfactory: Yes Nausea and Vomiting Control Satisfactory: Yes Mental Status Recovered: Yes Vital Signs: Last Vital Signs Temp 98.2 F 04/16/20 14:20 Pulse 52 L 04/16/20 14:20 Resp 16 04/16/20 14:20 BP 109/58 L 04/16/20 14:20 Pulse Ox 96 04/16/20 14:20 - COMMENTS/OBSERVATIONS Free Text/Narrative:: Patient is stable, somewhat sleepy, is going for an extended floor recovery.
[2020-04-16] MEDS ORDERED: Prochlorperazine 10 MG/2 ML SDV IVPUSH PRN (14:45)
[2020-04-16] MEDS: Ketorolac 30 MG/ML SDV IVPUSH SCH (18:22)
[2020-04-16] MEDS: Acetaminophen/oxyCODONE 325-5 MG Tab PO PRN (21:41)
[2020-04-17] MEDS: Ketorolac 30 MG/ML SDV IVPUSH SCH ×2 (01:36→06:27)
[2020-04-17] MEDS ORDERED: Enoxaparin 40 MG/0.4 ML Syringe SUBCUT SCH (08:00)
--- NOTE | 2020-04-17 10:39 | PCM.DCSUM1 ---
Discharge Summary - Hospital Course Free Text/Narrative:: [facility] Post-Op/Procedure Note Patient Name: JASON HILL Date of : 1970 Patient Status: Surgical Day Care Attending Provider: Manolo Stallworth Date: 04/16/20 13:19 Initialization Date: 04/16/20 13:19 - General Post-Op/Procedure Note Date of Surgery/Procedure: 04/16/20 Operative Procedure(s): Laparoscopic-assisted vaginal hysterectomy bilateral salpingectomy, anterior colporrhaphy, mid urethral sling Pre Op Diagnosis: DILMA-1, cystocele midline, dysmenorrhea, pelvic pain, stress urinary incontinence Post-Op Diagnosis: Same Anesthesia Technique: General ET Tube Primary Surgeon: Manolo Stallworth Secondary Surgeon: Pratik Sanders Anesthesia Provider: Modesto Cabello Reason Bottoming Room Supervisor Was Necessary: Assist in surgery, decrease comorbidity and mortality Role of Bottoming Room Supervisor: Assist in surgery, decrease comorbidity and mortality Fluid Replacement, Intraop: 2,000 Output, Urine Amount: 260 EBL in mLs: 100 Drain/Tube Comments:: None Complications: None Condition: Good Free Text/Narrative:: Intake & Output 04/15/20 04/16/20 04/16/20 22:59 06:59 14:59 Output Total 260 Balance -260 Patient was transported to operating room in medical office building and placed under general anesthesia with endotracheal intubation in the low dorsolithotomy position. Prepared and draped in a sterile fashion. Timeout was performed confirming name date of and procedure. SCDs in place and functioning prior to surgery. Ancef 2 g given intravenously prior to surgery. Patient has history of factor V Leiden deficiency and will be given Lovenox 40 mg subcu 1 hour postop and daily for the next 14 days. Examination under anesthesia revealed anterior uterus no adnexal masses. The area of the planned incision for the laparoscope was injected with 1.5 mL of Marcaine 0.5% without epinephrine a vertical incision was made and the 5 mm self-retaining trocar was introduced after obtaining pneumoperitoneum with the varies needle. Right and left lower flank incisions made with transillumination to avoid vessel injury. The uterus was grasped elevated and posterior cul-de-sac inspected anterior cul-de-sac inspected and no problems anticipated the appendix was not visualized. The gallbladder appeared normal. The attention was turned to the uterus patient had had previous tubal ligation. Utilizing Enseal crossclamping and removing the fallopian tube distal portions bilaterally without difficulty. Both ovaries appeared normal and patient and I discussed leaving ovaries if possible since she is not a good candidate for hormone replacement therapy because of her factor V Leiden deficiency. Patient understands she may have to undergo additional surgery in the future if any problems develop. Utilizing the Enseal and proceeding caudad crossclamping at the area of the round ligament and utero-ovarian ligament activating the Enseal and incising proceeding caudad crossclamping, activating and incising until the area of the lower uterine segment was approximated and a low transverse application of the Enseal was able to produce bladder flap without difficulty. One additional bite was taken to the uterine vasculature on the right side. Small amount of bleeding arterial was noted in the artery was grasped and electrocoagulated with the Enseal b leeding was stopped. Same procedure was carried out on the left side. Upon completion of the left-sided surgery as well the procedure was then completed vaginally. The cervix was grasped injecting approximately 21 mL of lidocaine 0.25 with epinephrine and multiple confluent areas and circumscribing the cervix the posterior colpotomy was entered without difficulty long weighted speculum placed in the anterior colpotomy was performed without difficulty. Utilizing Enseal crossclamping the uterosacral and cardinal bundles the Enseal was activated and incised additional 2 bites with the Enseal on the left side completed surgery on that side and same was carried out on the right side. Hemostasis was normal. To posterior cuff was closed with running locking suture of 0 Monocryl. A anterior colporrhaphy was performed grasping the inferior portion of the vaginal mucosa and injecting 0.25% lidocaine with epinephrine approximately 2 mL to 3 mL in the subcutaneous tissue undermining and then pushing the redundant tissue caudad the plication sutures were placed at the urethrovesical angle and 1 additional suture required posteriorly the redundant vaginal mucosa was removed sutures were placed with 0 Monocryl. Closing the vaginal mucosa incision with 3-0 Monocryl. The anterior posterior vaginal cuff were then approximated with 0 Monocryl hemostasis was complete. The mid urethral sling was then performed injecting 1 to 2 mL of lidocaine with epinephrine as noted above in the area of the planned incision vertical incision was made along the urethra beginning at the cystourethral angle. The redundant tissue was pushed cephalad. The areas of planned placement of the mesh needles had been marked and a small incision made the mesh needle was then brought through on the left side with evaluation of the mucosa of the vagina to make sure no "buttonhole" same procedure was carried out on the right side and the mesh was cut at the skin line to allow retraction. Utilizing large Hegar dilator #15 the mesh was placed in a smooth and wrinkled condition with looseness flat against the Hegar dilator. That incision was closed with a running suture of 3-0 Monocryl, 240 mL of saline instilled into the bladder to allow more prompt need to void. The attention was then turned back to the abdomen and reobtaining pneumoperitoneum inspection of the operative site showed no bleeding patient's pneumoperitoneum was reduced and the 3 incisions on the abdomen were closed with 3-0 Monocryl Dermabond applied to all the incisions. Patient was transported to postanesthesia care unit in satisfactory condition no blood transfusions required an unanticipated nursing condition should change. Patient will be given Lovenox 40 mg subcutaneous injection at 1400 hrs. and patient will be kept on extended recovery overnight as she lives in [facility]. I talked with her all questions were answered to his voiced satisfaction. Images 001 subcutaneous tissue and omentum and liver are seen at the center of the picture 002 close review of the gallbladder and liver 003 distal portion of fallopian tube remaining after tubal ligation in the right ovary on the right side of the picture left side the picture is the uterus 004 left ovary and remaining distal portion of fallopian tube after tubal ligation which have been performed elsewhere. Uterus is noted at the right side of the picture. 005 shows the left lower quadrant flank incision where the trocar came through the peritoneum with no bleeding Image 006 shows the right lower quadrant incision where the trocar came through the peritoneum after removal and no bleeding. HPI Initial Comments: [facility] Post-Op/Procedure Note Patient Name: JASON HILL Date of : 1970 Patient Status: Surgical Day Care Attending Provider: Manolo Stallworth Date: 04/16/20 13:19 Initialization Date: 04/16/20 13:19 - General Post-Op/Procedure Note Date of Surgery/Procedure: 04/16/20 Operative Procedure(s): Laparoscopic-assisted vaginal hysterectomy bilateral salpingectomy, anterior colporrhaphy, mid urethral sling Pre Op Diagnosis: DILMA-1, cystocele midline, dysmenorrhea, pelvic pain, stress urinary incontinence Post-Op Diagnosis: Same Anesthesia Technique: General ET Tube Primary Surgeon: Manolo Stallworth Secondary Surgeon: Pratik Sanders Anesthesia Provider: Modesto Cabello Reason Bottoming Room Supervisor Was Necessary: Assist in surgery, decrease comorbidity and mortality Role of Bottoming Room Supervisor: Assist in surgery, decrease comorbidity and mortality Fluid Replacement, Intraop: 2,000 Output, Urine Amount: 260 EBL in mLs: 100 Drain/Tube Comments:: None Complications: None Condition: Good Free Text/Narrative:: Intake & Output 04/15/20 04/16/20 04/16/20 22:59 06:59 14:59 Output Total 260 Balance -260 Patient was transported to operating room in medical office building and placed under general anesthesia with endotracheal intubation in the low dorsolithotomy position. Prepared and draped in a sterile fashion. Timeout was performed confirming name date of and procedure. SCDs in place and functioning prior to surgery. Ancef 2 g given intravenously prior to surgery. Patient has history of factor V Leiden deficiency and will be given Lovenox 40 mg subcu 1 hour postop and daily for the next 14 days. Examination under anesthesia revealed anterior uterus no adnexal masses. The area of the planned incision for the laparoscope was injected with 1.5 mL of Marcaine 0.5% without epinephrine a vertical incision was made and the 5 mm self-retaining trocar was introduced after obtaining pneumoperitoneum with the varies needle. Right and left lower flank incisions made with transillumination to avoid vessel injury. The uterus was grasped elevated and posterior cul-de-sac inspected anterior cul- de-sac inspected and no problems anticipated the appendix was not visualized. The gallbladder appeared normal. The attention was turned to the uterus patient had had previous tubal ligation. Utilizing Enseal crossclamping and removing the fallopian tube distal portions bilaterally without difficulty. Both ovaries appeared normal and patient and I discussed leaving ovaries if possible since she is not a good candidate for hormone replacement therapy because of her factor V Leiden deficiency. Patient understands she may have to undergo additional surgery in the future if any problems develop. Utilizing the Enseal and proceeding caudad crossclamping at the area of the round ligament and utero- ovarian ligament activating the Enseal and incising proceeding caudad crossclamping, activating and incising until the area of the lower uterine segment was approximated and a low transverse application of the Enseal was able to produce bladder flap without difficulty. One additional bite was taken to the uterine vasculature on the right side. Small amount of bleeding arterial was noted in the artery was grasped and electrocoagulated with the Enseal bleeding was stopped. Same procedure was carried out on the left side. Upon completion of the left-sided surgery as well the procedure was then completed vaginally. The cervix was grasped injecting approximately 21 mL of lidocaine 0.25 with epinephrine and multiple confluent areas and circumscribing the cervix the posterior colpotomy was entered without difficulty long weighted speculum placed in the anterior colpotomy was performed without difficulty. Utilizing Enseal crossclamping the uterosacral and cardinal bundles the Enseal was activated and incised additional 2 bites with the Enseal on the left side completed surgery on that side and same was carried out on the right side. Hemostasis was normal. To posterior cuff was closed with running locking suture of 0 Monocryl. A anterior colporrhaphy was performed grasping the inferior portion of the vaginal mucosa and injecting 0.25% lidocaine with epinephrine approximately 2 mL to 3 mL in the subcutaneous tissue undermining and then pushing the redundant tissue caudad the plication sutures were placed at the urethrovesical angle and 1 additional suture required posteriorly the redundant vaginal mucosa was removed sutures were placed with 0 Monocryl. Closing the va ginal mucosa incision with 3-0 Monocryl. The anterior posterior vaginal cuff were then approximated with 0 Monocryl hemostasis was complete. The mid urethral sling was then performed injecting 1 to 2 mL of lidocaine with epinephrine as noted above in the area of the planned incision vertical incision was made along the urethra beginning at the cystourethral angle. The redundant tissue was pushed cephalad. The areas of planned placement of the mesh needles had been marked and a small incision made the mesh needle was then brought through on the left side with evaluation of the mucosa of the vagina to make sure no "buttonhole" same procedure was carried out on the right side and the mesh was cut at the skin line to allow retraction. Utilizing large Hegar dilator #15 the mesh was placed in a smooth and wrinkled condition with looseness flat against the Hegar dilator. That incision was closed with a running suture of 3-0 Monocryl, 240 mL of saline instilled into the bladder to allow more prompt need to void. The attention was then turned back to the abdomen and reobtaining pneumoperitoneum inspection of the operative site showed no bleeding patient's pneumoperitoneum was reduced and the 3 incisions on the abdomen were closed with 3-0 Monocryl Dermabond applied to all the incisions. Patient was transported to postanesthesia care unit in satisfactory condition no blood transfusions required an unanticipated nursing condition should change. Patient will be given Lovenox 40 mg subcutaneous injection at 1400 hrs. and patient will be kept on extended recovery overnight as she lives in [facility]. I talked with her all questions were answered to his voiced satisfaction. Images 001 subcutaneous tissue and omentum and liver are seen at the center of the picture 002 close review of the gallbladder and liver 003 distal portion of fallopian tube remaining after tubal ligation in the right ovary on the right side of the picture left side the picture is the uterus 004 left ovary and remaining distal portion of fallopian tube after tubal ligation which have been performed elsewhere. Uterus is noted at the right side of the picture. 005 shows the left lower quadrant flank incision where the trocar came through the peritoneum with no bleeding Image 006 shows the right lower quadrant incision where the trocar came through the peritoneum after removal and no bleeding. Brief History: [facility] . Post-Op/Procedure Note. [facility]: [id number]. Date of : 1970Patient Status: Surgical Day Care. [facility]: [id number]. Date: 04/16/20 13:19Initialization Date: 04/16/20 13:19. - General Post-Op/Procedure Note. Date of Surgery/Procedure: 04/16/20. Operative Procedure(s): Laparoscopic-assisted vaginal hysterectomy bilateral salpingectomy, anterior colporrhaphy, mid urethral sling. Pre Op Diagnosis: DILMA-1, cystocele midline, dysmenorrhea, pelvic pain, stress urinary incontinence. Post-Op Diagnosis: Same. Anesthesia Technique: General ET Tube. Primary Surgeon: Manolo Stallworth. Secondary Surgeon: Pratik Sanders. Anesthesia Provider: Modesto Cabello. Reason Bottoming Room Supervisor Was Necessary: Assist in surgery, decrease comorbidity and mortality. Role of Bottoming Room Supervisor: Assist in surgery, decrease comorbidity and mortality. Fluid Replacement, Intraop: 2,000. Output, Urine Amount: 260. EBL in mLs: 100. Drain/Tube Comments:: None. Complications: None. Condition: Good. Free Text/Narrative:: Intake & Output. 04/15/2006/. [id number]:[id number]:59. Output [id number]. Balance-260. Patient was transported to operating room in medical office building and placed under general anesthesia with endotracheal intubation in the low dorsolithotomy position. Prepared and draped in a sterile fashion. Timeout was performed confirming name date of and procedure. SCDs in place and functioning prior to surgery. Ancef 2 g given intravenously prior to surgery. Patient has history of factor V Leiden deficiency and will be given Lovenox 40 mg subcu 1 hour postop and daily for the next 14 days. Examination under anesthesia revealed anterior uterus no adnexal masses. The area of the planned incision for the laparoscope was injected with 1.5 mL of Marcaine 0.5% without epinephrine a vertical incision was made and the 5 mm self-retaining trocar was introduced after obtaining pneumoperitoneum with the varies needle. Right and left lower flank incisions made with transillumination to avoid vessel injury. The uterus was grasped elevated and posterior cul-de-sac inspected anterior cul-de-sac inspected and no problems anticipated the appendix was not visualized. The gallbladder appeared normal. The attention was turned to the uterus patient had had previous tubal ligation. Utilizing Enseal crossclamping and removing the fallopian tube distal portions bilaterally without difficulty. Both ovaries appeared normal and patient and I discussed leaving ovaries if possible since she is not a good candidate for hormone replacement therapy because of her factor V Leiden deficiency. Patient understands she may have to undergo additional surgery in the future if any problems develop. Utilizing the Enseal and proceeding caudad crossclamping at the area of the round ligament and utero-ovarian ligament activating the Enseal and incising proceeding caudad crossclamping, activating and incising until the area of the lower uterine segment was approximated and a low transverse application of the Enseal was able to produce bladder flap without difficulty. One additional bite was taken to the uterine vasculature on the right side. Small amount of bleeding arterial was noted in the artery was grasped and electrocoagulated with the Enseal bleeding was stopped. Same procedure was carried out on the left side. Upon completion of the left-sided surgery as well the procedure was then completed vaginally. The cervix was grasped injecting approximately 21 mL of lidocaine 0.25 with epinephrine and multiple confluent areas and circumscribing the cervix the posterior colpotomy was entered without difficulty long weighted speculum placed in the anterior colpotomy was performed without difficulty. Utilizing Enseal crossclamping the uterosacral and cardinal bundles the Enseal was activated and incised additional 2 bites with the Enseal on the left side completed surgery on that side and same was carried out on the right side. Hemostasis was normal. To posterior cuff was closed with running locking suture of 0 Monocryl. A anterior colporrhaphy was performed grasping the inferior portion of the vaginal mucosa and injecting 0.25% lidocaine with epinephrine approximately 2 mL to 3 mL in the subcutaneous tissue undermining and then pushing the redundant tissue caudad the plication sutures were placed at the urethrovesical angle and 1 additional suture required posteriorly the redundant vaginal mucosa was removed sutures were placed with 0 Monocryl. Closing the vaginal mucosa incision with 3-0 Monocryl. The anterior posterior vaginal cuff were then approximated with 0 Monocryl hemostasis was complete. The mid urethral sling was then performed injecting 1 to 2 mL of lidocaine with epinephrine as noted above in the area of the planned incision vertical incision was made along the urethra beginning at the cystourethral angle. The redundant tissue was pushed cephalad. The areas of planned placement of the mesh needles had been marked and a small incision made the mesh needle was then brought through on the left side with evaluation of the mucosa of the vagina to make sure no "buttonhole" same procedure was carried out on the right side and the mesh was cut at the skin line to allow retraction. Utilizing large Hegar dilator #15 the mesh was placed in a smooth and wrinkled condition with looseness flat against the Hegar dilator. That incision was closed with a running suture of 3-0 Monocryl, 240 mL of saline instilled into the bladder to allow more prompt need to void. The attention was then turned back to the abdomen and reobtaining pneumoperitoneum inspection of the operative site showed no bleeding patient's pneumoperitoneum was reduced and the 3 incisions on the abdomen were closed with 3-0 Monocryl Dermabond applied to all the incisions. Patient was transported to postanesthesia care unit in satisfactory condition no blood transfusions required an unanticipated nursing condition should change. Patient will be given Lovenox 40 mg subcutaneous injection at 1400 hrs. and patient will be kept on extended recovery overnight as she lives in [facility]. I talked with her all questions were answered to his voiced satisfa ction. Images. 001 subcutaneous tissue and omentum and liver are seen at the center of the picture. 002 close review of the gallbladder and liver. 003 distal portion of fallopian tube remaining after tubal ligation in the right ovary on the right side of the picture left side the picture is the uterus. 004 left ovary and remaining distal portion of fallopian tube after tubal ligation which have been performed elsewhere. Uterus is noted at the right side of the picture. 005 shows the left lower quadrant flank incision where the trocar came through the peritoneum with no bleeding. Image 006 shows the right lower quadrant incision where the trocar came through the peritoneum after removal and no bleeding. Diagnosis: Stroke: No - Discharge Data Discharge Date: 04/17/20 Discharge Disposition: Home, Self-Care 01 Condition: Good - Referral to Home Health Primary Care Physician: Nu Fry NP - Discharge Diagnosis/Problem(s) (1) Cystocele SNOMED Code(s): 668849692 ICD Code: [id number] - Status: Acute Current Visit: Yes (2) MAXIMILIAN (stress urinary incontinence, female) SNOMED Code(s): 21474553 ICD Code: N39.3 - STRESS INCONTINENCE (FEMALE) (MALE) Status: Acute Current Visit: Yes (3) Pelvic pain SNOMED Code(s): 90910526 ICD Code: R10.2 - PELVIC AND PERINEAL PAIN Status: Acute Current Visit: Yes (4) Abnormal cytological finding in specimen from cervix uteri SNOMED Code(s): 374250604 ICD Code: R87.619 - UNSP ABNORMAL CYTOLOG FINDINGS IN SPECMN FROM CERVIX UTERI Status: Acute Current Visit: No (5) Atypical squamous cells of undetermined significance on cytologic smear of cervix (ASC-US) SNOMED Code(s): 29766841, 862650681 ICD Code: R87.610 - ATYP SQUAM CELL OF UNDET SIGNFC CYTO SMR CRVX (ASC-US) Status: Acute Current Visit: No (6) DILMA I (cervical intraepithelial neoplasia I) SNOMED Code(s): 142019148 ICD Code: N87.0 - MILD CERVICAL DYSPLASIA Status: Acute Current Visit: No - Patient Summary/Data Operative Procedure(s) Performed: Laparoscopic-assisted vaginal hysterectomy bilateral salpingectomy, anterior colporrhaphy, mid urethral sling Complications: acute urinary retention postop, resolved after one in and out cath Consults: none Hospital Course: uneventful - Patient Instructions Diet: Usual Diet as Tolerated Driving: Do Not Drive (x2 weeks) Showering/Bathing: May Shower, No Tub Bathing/Swimming (x6 weeks) Wound/Incision Care: Keep Operative Site/Wound Site Clean and Dry Notify Provider of: Fever, Increased Pain, Swelling and Redness, Drainage, Nausea and/or Vomiting - Discharge Plan *PRESCRIPTION DRUG MONITORING PROGRAM REVIEWED*: Not Applicable *COPY OF PRESCRIPTION DRUG MONITORING REPORT IN PATIENT PATRICK: Not Applicable Home Medications: Home Meds Ascorbate Calcium [Vitamin C] 1,000 mg PO DAILY 06/13/17 [History] Aspirin 81 mg PO DAILY 06/13/17 [History] Cholecalciferol (Vitamin D3) [Vitamin D3] 5,000 unit PO DAILY 06/13/17 [History] Clobetasol [Clobetasol 0.05%] 1 applic TOP BID 06/13/17 [History] Fish Oil/DHA/EPA [Fish Oil 1,200 MG] 2 cap PO DAILY 06/13/17 [History] Iron 18 mg PO DAILY 06/13/17 [History] Milk Thistle 1,000 mg PO DAILY 06/13/17 [History] Thyroid,Pork [Nature-Throid] 32.5 mg PO BID 06/13/17 [History] Turmeric Root Extract [Turmeric] 1,000 mg PO DAILY 11/01/17 [History] Calcium Carbonate [Calcium] 500 mg PO DAILY 04/15/20 [History] Iodine/Sodium Iodide [Iodine 2% Mild Tincture] 3 drop SL DAILY 04/15/20 [History] L.acidoph,Paracasei, B.lactis [Probiotic] 1 cap PO DAILY 04/15/20 [History] Tobramycin/Dexamethasone [Tobradex Eye Drops] 1 drop EYEBOTH ASDIRECTED PRN 0 04/15/20 [History] Ubidecarenone [Coq-10] 100 mg PO DAILY 04/15/20 [History] - Discharge Summary/Plan Comment DC Time >30 min.: No - Patient Data Vitals - Most Recent: Last Vital Signs Temp 97.9 F 04/17/20 08:30 Pulse 87 04/17/20 08:30 Resp 18 04/17/20 08:30 BP 119/67 04/17/20 08:30 Pulse Ox 95 04/17/20 08:30 Weight - Most Recent: 196 lb I&O - Last 24 hours: Intake & Output 04/16/20 04/17/20 04/17/20 22:59 06:59 14:59 Intake Total 240 Output Total 400 Balance -400 240 Lab Results - Last 24 hrs: Laboratory Results - last 24 hr 04/17/20 Range/Units 04:47 WBC 7.97 (3.98-10.04) K/mm3 RBC 3.95 L (3.98-5.22) M/mm3 Hgb 11.9 D (11.2-15.7) gm/dl Hct 35.8 (34.1-44.9) % MCV 90.6 (79.4-94.8) fl MCH 30.1 (25.6-32.2) pg MCHC 33.2 (32.2-35.5) g/dl RDW Std Deviation 40.9 (36.4-46.3) fL Plt Count 154 L (182-369) K/mm3 MPV 10.1 (9.4-12.3) fl Neut % (Auto) 75.9 H (34.0-71.1) % Lymph % (Auto) 16.3 L (19.3-51.7) % [place] % (Auto) 7.3 (4.7-12.5) % Eos % (Auto) 0.3 L (0.7-5.8) Baso % (Auto) 0.1 (0.1-1.2) % Neut # (Auto) 6.05 (1.56-6.13) K/mm3 Lymph # (Auto) 1.30 (1.18-3.74) K/mm3 [place] # (Auto) 0.58 H (0.24-0.36) K/mm3 Eos # (Auto) 0.02 L (0.04-0.36) K/mm3 Baso # (Auto) 0.01 (0.01-0.08) K/mm3 Med Orders - Current: Current Medications Enoxaparin Sodium (Lovenox) 40 mg SUBCUT ONETIME ONE Stop: 04/17/20 10:46 Ondansetron HCl (Zofran) 4 mg IVPUSH Q8H PRN PRN Reason: Nausea Oxycodone/Acetaminophen (Percocet 325-5 Mg) 1 tab PO Q6H PRN PRN Reason: Pain Last Admin: 04/16/20 21:41 Dose: 1 tab Documented by: Discontinued Medications Bupivacaine HCl (Marcaine 0.5%) Confirm Administered Dose 30 ml .ROUTE .STK-MED ONE Stop: 04/16/20 10:19 Last Admin: 04/16/20 11:32 Dose: 7 ml Documented by: Cefazolin Sodium (Ancef) Confirm Administered Dose 2 gm .ROUTE .STK-MED ONE Stop: 04/16/20 09:38 Enoxaparin Sodium (Lovenox) 40 mg SUBCUT .ONETIME SAMIRA Enoxaparin Sodium (Lovenox) 40 mg SUBCUT ONETIME ONE Stop: 04/16/20 14:17 Last Admin: 04/16/20 14:20 Dose: 40 mg Documented by: Fentanyl (Sublimaze) Confirm Administered Dose 250 mcg .ROUTE .STK-MED ONE Stop: 04/16/20 09:28 Fentanyl (Sublimaze) 100 mcg IVPUSH Q5M PRN PRN Reason: Pain Stop: 04/16/20 16:00 Glycopyrrolate () Confirm Administered Dose 1 mg .ROUTE .STK-MED ONE Stop: 04/16/20 09:30 Glycopyrrolate () Confirm Administered Dose 1 mg .ROUTE .STK-MED ONE Stop: 04/16/20 13:07 Hydromorphone HCl (Dilaudid) Confirm Administered Dose 1 mg .ROUTE .STK-MED ONE Stop: 04/16/20 11:36 Hydromorphone HCl (Dilaudid) 0.5 mg IVPUSH Q10M PRN PRN Reason: Pain (severe 7-10) Stop: 04/16/20 15:00 Lactated Ringer's (Ringers, Lactated) 1,000 mls @ 125 mls/hr IV ASDIRECTED [facility] Stop: 04/16/20 23:00 Last Admin: 04/16/20 13:46 Dose: 125 mls/hr Documented by: Lidocaine HCl (Xylocaine-Mpf 1%) Confirm Administered Dose 4 mls @ as directed .ROUTE .STK-MED ONE Stop: 04/16/20 09:38 Lactated Ringer's (Ringers, Lactated) Confirm Administered Dose 1,000 mls @ as directed .ROUTE .STK-MED ONE Stop: 04/16/20 11:39 Ketorolac Tromethamine (Toradol) Confirm Administered Dose 30 mg .ROUTE .STK-MED ONE Stop: 04/16/20 10:04 Ketorolac Tromethamine (Toradol) Confirm Administered Dose 30 mg .ROUTE .STK-MED ONE Stop: 04/16/20 13:10 Ketorolac Tromethamine (Toradol) 30 mg IVPUSH Q6H [facility] Stop: 04/17/20 07:01 Last Admin: 04/17/20 06:27 Dose: 30 mg Documented by: Lidocaine/Epinephrine (Xylocaine 1% With Epinephrine 1:100,000) Confirm Administered Dose 20 ml .ROUTE .STK-MED ONE Stop: 04/16/20 10:39 Lidocaine/Sodium Bicarbonate (Buffered Lidocaine 1% In Ns 8.4%) 0.25 ml IDERM ONETIME PRN PRN Reason: Prior to IV Start Stop: 04/16/20 18:00 Last Admin: 04/16/20 09:20 Dose: 0.25 ml Documented by: Midazolam HCl (Versed 1 Mg/Ml) Confirm Administered Dose 4 mg .ROUTE .STK-MED ONE Stop: 04/16/20 09:28 Neostigmine Methylsulfate (Neostigmine Methylsulfate) Confirm Administered Dose 5 mg .ROUTE .STK-MED ONE Stop: 04/16/20 13:07 Ondansetron HCl (Zofran) Confirm Administered Dose 8 mg .ROUTE .STK-MED ONE Stop: 04/16/20 12:09 Prochlorperazine Edisylate (Compazine) 5 mg IVPUSH Q30M PRN PRN Reason: Nausea Stop: 04/16/20 18:00 Last Admin: 04/16/20 15:26 Dose: 5 mg Documented by: Propofol (Diprivan 20 Ml) Confirm Administered Dose 200 mg .ROUTE .STK-MED ONE Stop: 04/16/20 09:27 Rocuronium [place] (Zemuron) Confirm Administered Dose 50 mg .ROUTE .STK-MED ONE Stop: 04/16/20 11:17 Scopolamine (Transderm-Scop) 1.5 mg TOP ONETIME SAMIRA Stop: 04/16/20 15:00 Last Admin: 04/16/20 10:40 Dose: 1.5 mg Documented by: Sodium Chloride (Saline Flush) 10 ml FLUSH ASDIRECTED PRN PRN Reason: Keep Vein Open Stop: 04/16/20 23:00 Sodium Chloride (Normal Saline) Confirm Administered Dose 50 ml .ROUTE .STK-MED ONE Stop: 04/16/20 10:21
[2020-04-17] MEDS ORDERED: Enoxaparin 40 MG/0.4 ML Syringe SUBCUT ONE (10:45)
[2020-04-17] MEDS: Acetaminophen/oxyCODONE 325-5 MG Tab PO PRN (10:53)
[2020-04-17 19:17] VITALS: BP 110/65; PULSE 78
== END 2020-04-17 12:37 | disposition home or self-care (01) ==
LOC: JD.SDS 08:55 → JD.MS 08:56 → JD.SDS 04-17 12:37
PROVIDERS: ATTEND Obstetrics & Gynecology
DX: N80.2 Endometriosis of fallopian tube (principal); N87.0 Mild cervical dysplasia; N39.3 Stress incontinence (female) (male); J45.909 Unspecified asthma, uncomplicated; D68.51 Activated protein C resistance; N81.10 Cystocele, unspecified; N81.6 Rectocele; I10 Essential (primary) hypertension; E78.00 Pure hypercholesterolemia, unspecified; K21.9 Gastro-esophageal reflux disease without esophagitis; E03.9 Hypothyroidism, unspecified; E66.9 Obesity, unspecified; Z79.82 Long term (current) use of aspirin; Z79.899 Other long term (current) drug therapy; Z98.51 Tubal ligation status; Z68.33 Body mass index [BMI] 33.0-33.9, adult
CPT/HCPCS: 36415; 51701; 51798; 51992; 57240; 58552; 84702; 85025; 86850; 86900; 86901; A9270; C1771; J0330; J0690; J0780; J1170; J1650; J1885; J2001; J2250; J2704; J2710; J3010; J3490; J7120; 00944; J2405